=== PATIENT | male | born 1980 | race Caucasian/White ===

== ENCOUNTER 2018-05-28 17:20 | Emergency (ER) | payer MEDICAID ==
[~2018-05-28] VITALS: Ht 188 cm; Wt 84.1 kg
[2018-05-28 17:41] VITALS: BP 134/91
[2018-05-28] MEDS ORDERED: CEPH-572 PO (18:32)
[2018-05-28] MEDS ORDERED: SULF1TAB49 PO (18:32)
[2018-05-28] MEDS ORDERED: TETanus/Pertussis (Acell)/Diphther VAC/PF (Tdap-Adult) 0.5ml syringe IM ONE (18:35)
[2018-05-28] MEDS ORDERED: sulfamethoxazole/trimethoprim DS (800/160mg) tablet PO ONE (18:35)
[2018-05-28] MEDS ORDERED: CefTRIAXone 1000mg IM Kit (w/lidocaine diluent) IM ONE (18:35)
== END 2018-05-28 19:06 | disposition home or self-care (01) ==
LOC: ER 17:21
DX: L02.512 Cutaneous abscess of left hand (principal); F17.200 Nicotine dependence, unspecified, uncomplicated
CPT/HCPCS: 87070; 87077; 87186; 90471; 90715; 96372; 99283; J0696